=== PATIENT | female | born 1980 | race Two or more races ===

== ENCOUNTER 2016-06-05 07:25 | Day surgery (SDC) | payer BC ==
--- NOTE | 2016-05-07 21:53 | HP ---
ADMISSION HISTORY AND PHYSICAL: DATE OF ADMISSION: 05/22/16 ATTENDING SURGEON: Wilfredo Do MD CHIEF COMPLAINT: Pain, left lower quadrant, former colostomy site pain. HISTORY OF PRESENT ILLNESS: This is a 36-year-old generally healthy female who underwent sigmoid colon resection in September 2014 with colostomy for an obstructing stage III colon cancer. She completed FOLFOX-5 chemotherapy and then underwent reversal of her colostomy in [place]. This was complicated by a pelvic hematoma requiring percutaneous pigtail drainage with eventual resolution. Since her last surgery, she has noted intermittent pain, itching, and pulling sensation in the area of the former colostomy, which was allowed to heal by secondary intention. She has otherwise been doing well and continues to be followed by Dr. Wilson at [place]. She had undergone CT scan of the abdomen and pelvis on 04/27/15 and then subsequent MRI of the abdomen on 10/10/[address] on that same date (see separate reports). These were reviewed by Dr. Do, who saw the patient on 02/26/16. There was no evidence of collection other than possible resolving hematoma and no evidence of incisional hernia. He has discussed with the patient the indications for surgery, the plan , and the alternatives including no further surgery. The patient would like to proceed as scheduled with exploration of left colostomy site incision. PAST MEDICAL HISTORY: Colon cancer (see above). No other significant past medical history noted. PAST SURGICAL HISTORY: As above. She did have a PowerPort placed and eventually removed after completion of chemotherapy. CURRENT MEDICATIONS: She takes aspirin 81 mg once daily for secondary colorectal cancer prevention (instructed to stop one week prior to surgery). She also takes a probiotic daily, vitamin D dose not specified once daily and turmeric and mushroom supplement. She was asked to hold these for 3 days preoperatively. DRUG ALLERGIES: None known. FAMILY HISTORY: Negative for colorectal cancer and is also negative for bleeding problems. There is apparently a positive family history for the MTHFR gene, which I believe would potentially increase risk of venous thrombosis, though the herself has never been tested nor she had personal history of bleeding or clotting disorders. SOCIAL HISTORY: The patient is . 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 She denies use of tobacco. She drinks on average 3 glasses of wine per week. She denies any other recreational drug use. REVIEW OF SYSTEMS: General: No recent constitutional symptoms or acute illnesses. Her weight has been stable. Cardiovascular: No history of chest pain, palpitations, heart murmur, hypertension. Respiratory: No history of asthma, chronic cough or shortness of breath. GI: As above, no additions. The patient did undergo colonoscopy recently in [place] on 04/23/16, which she states was normal study. : No problems reported. DETECTIVE CHIEF: She is up-to- date within the past 2 to 3 years for Pap smear and pelvic exam as well as breast exam. She has not yet had a baseline mammogram. Endocrine: No diabetes or thyroid dysfunction. PHYSICAL EXAMINATION GENERAL: Well-nourished, well-developed female, in no acute distress. VITAL SIGNS: Height 61 inches, weight 118 pounds, temperature 97.5, blood pressure 112/70, pulse 78. HEENT: Pupils equal, round, reactive. EOMs intact. No conjunctival pallor. Scleral icterus. Oropharynx: Teeth in good repair. No intraoral lesions. NECK: No lymphadenopathy, thyromegaly, or masses. LUNGS: Clear to auscultation. No rales or wheezes. HEART: Regular rate and rhythm. No murmur noted. BREAST: Not examined. ABDOMEN: Well healed midline incision as well as left sided former colostomy site, which does show some puckering by palpation. There is some mild tenderness in this area. There are no palpable masses or obvious hernia defects. The remainder of the abdomen is soft and nontender. No other palpable masses or organomegaly. GENITALIA AND RECTAL : Not done. BACK: No spinous process or CVA tenderness. EXTREMITIES: No edema. SKIN: Warm and dry. No suspicious rashes or lesions. NEUROLOGICAL: Grossly intact. IMPRESSION: Pain at former left lower quadrant colostomy site. PLAN: Exploration, left lower quadrant former colostomy site incision. SHANNA WALLACE CC: [facility]; Dr. Wilson, [place], [place]* [id number]/[facility] #: [id number] MTDD
[2016-06-05 07:21] LABS: UR Preg Kit Lot# 6030156
[2016-06-05 07:22] LABS: Manual Entry Verification AS; UR Preg Internal Control QC Line Present
[~2016-06-05 07:25] MED LIST: Buffered Lidocaine 1% SYR 3ML* 3 ML/SYR SYRINGE INTRADERM ONE; ceFAZolin 2 GM PREMIX (*) 2 GM/50 ML BAG IVPB ONE
[2016-06-05] MEDS ORDERED: fentaNYL* 50 MCG/ML 2 ML VIAL (100 MCG VIAL) ONE (08:16)
[2016-06-05] MEDS ORDERED: Midazolam* 1 MG/ML 2 ML VIAL (2 MG) ONE (08:16)
[2016-06-05] MEDS ORDERED: Lidocaine 2% PF * 5 ML VIAL ONE (09:25)
[2016-06-05] MEDS ORDERED: Propofol* 10 MG/ML 20 ML BTL IV PUSH ONE (09:25)
[2016-06-05] MEDS ORDERED: Dexamethasone IV* 4 MG/ML 1 ML (4 MG) ONE (09:25)
[2016-06-05] MEDS ORDERED: Ketorolac INJ* 30 MG/ML 1 ML VIAL ONE (09:25)
[2016-06-05] MEDS ORDERED: Famotidine IV* 10 MG/ML 2 ML (20 mg) ONE (09:25)
[2016-06-05] MEDS ORDERED: Bupivacaine 0.25% EPI 200,000* 30 ML SDV ONE (09:29)
[2016-06-05] MEDS ORDERED: fentaNYL* 50 MCG/ML 2 ML VIAL (100 MCG VIAL) IV PRN (09:30)
[2016-06-05] MEDS ORDERED: PROCHLORPERAZINE INJ 5 MG/ML 2 ML VIAL IV PRN (09:30)
[2016-06-05] MEDS ORDERED: Ondansetron INJ* 2 MG/ML VIAL IV PRN (09:30)
[2016-06-05] MEDS ORDERED: Acetaminophen TAB* 325 MG PO PRN (09:30)
[2016-06-05] MEDS ORDERED: DiMENhydriNATE IV* 50 MG/ML VIAL IV PUSH PRN (09:30)
[2016-06-05 11:01] VITALS: BP 106/58
--- NOTE | 2016-06-05 12:12 | OP ---
DATE OF OPERATION: 06/05/16 - [facility] DATE OF : 78 SURGEON: Wilfredo Do MD. PARTS SALES ADVISOR: Neeta Antoine NP. ANESTHESIOLOGIST: Dr. Llanos. ANESTHESIA: General anesthetic, local infiltration. PRE-OP DIAGNOSIS: Left lower quadrant colostomy site pain. POST-OP DIAGNOSIS: Left lower quadrant colostomy site pain. OPERATIVE PROCEDURE: Exploration of left lower quadrant colostomy site pain with repair of external oblique. DESCRIPTION OF PROCEDURE: The patient was supine on the operative table. After adequate general anesthetic, compression stockings, Nataliya Hugger warmer and intravenous antibiotics, the abdomen was prepped with antiseptic, draped in a sterile fashion. The previous scar was excised with an elliptical incision and the adipose was mobilized around the site as well. Examination of the external oblique revealed about a 1.5 cm separation in the external oblique aponeurosis at the site of the previous colostomy. The external oblique was then mobilized off the internal oblique, which appeared to be okay. The external oblique was closed over top with running 0 Polysorb. The adipose was advanced and approximated using 3-0 Polysorb and the skin closed with 5-0 Polysorb followed by Steri-Strips and a sterile dressing. She tolerated the procedure well, was brought to Recovery in good condition. No complications. No drains. No pathologic specimen. Sponge and instruments counts correct. Estimated blood loss 10 mL. CC: [facility]* [id number]/[facility] #: [id number] MTDD
== END 2016-06-05 12:04 | disposition home or self-care (01) ==
LOC: OR 07:25
PROVIDERS: ATTEND Surgery
DX: K94.09 Other complications of colostomy (principal); Y83.3 Surgical operation with formation of external stoma as the cause of abnormal reaction of the patient, or of later complication, without mention of misadventure at the time of the procedure; Y73.3 Surgical instruments, materials and gastroenterology and urology devices (including sutures) associated with adverse incidents; Y92.9 Unspecified place or not applicable; Z85.038 Personal history of other malignant neoplasm of large intestine; Z90.49 Acquired absence of other specified parts of digestive tract; Z92.21 Personal history of antineoplastic chemotherapy; Z79.82 Long term (current) use of aspirin
CPT/HCPCS: 81025; J0690; J1100; J1885; J2250; J2704; J3010

== ENCOUNTER 2017-10-22 01:47 | Emergency (ER) | payer BC ==
[2017-10-22] MEDS ORDERED: HYDROmorphone INJ* 2 MG/ML CARPUJECT SYRINGE IM ONE (02:07)
[2017-10-22] MEDS ORDERED: PROCHLORPERAZINE INJ 5 MG/ML 2 ML VIAL IM ONE (02:08)
[2017-10-22] MEDS ORDERED: Dexamethasone TAB* 4 MG PO ONE (02:09)
--- NOTE | 2017-10-22 02:14 | ED ---
Back Pain - HPI Summary HPI Summary: This is scribe Hung Holman documenting for attending Carol Ann Rey MD. This patient is a 37 year old F presenting to [facility] with a chief complaint of L- sided back pain since 19:00. The pain also radiates down to her buttock and L leg. The patient rates the pain 8/10 in severity. Symptoms aggravated by movement. Patient reports numbness. She self-medicated with 2 10 mg pillsof Percocet (which she had left over from bowel obstruction), ibuprofen, and Cyclobenzaprine. They were being advised by their neighbor, Paty Bain MD. Patient denies having had these symptoms before. I, Dr. Rey, personally performed the services described in this documentation as scribed in my presence and it is both accurate and complete. - History of Current Complaint Chief Complaint: EDBackInjuryPain Stated Complaint: BACK PAIN Time Seen by Provider: 10/22/17 02:03 Hx Obtained From: Patient Onset/Duration: Sudden Onset, Lasting Hours - Since 17:10/21/2017, Still Present Onset/Duration: Started Hours Ago - Since 17:10/21/2017, Still Present Timing: Constant Severity Initially: Severe Severity Currently: Severe Pain Intensity: 8 Pain Scale Used: 0-10 Numeric Aggravating Symptom(s): Movement Associated Signs And Symptoms: Positive: Numbness - Allergies/Home Medications Allergies/Adverse Reactions: Allergies Allergy/AdvReac Type Severity Reaction Status Date / Time Adhesive Tape Allergy Rash Verified 06/05/16 07:41 [Tegaderm Dressing] PMH/Surg Hx/FS Hx/Imm Hx Endocrine/Hematology History: Reports: Hx Anemia Denies: Hx Diabetes Cardiovascular History: Denies: Hx Congestive Heart Failure, Hx Hypertension GI History: Reports: Other GI Disorders - COLON CANCER History: Denies: Hx Renal Disease Sensory History: Denies: Hx Contacts or Glasses, Hx Hearing Aid Opthamlomology History: Denies: Hx Contacts or Glasses - Cancer History Cancer Type, Location and Year: colon CA Hx Chemotherapy: Yes - FINISHED MAR 2015 - Surgical History Surgery Procedure, Year, and Place: [place] [facility] [place] [facility] [facility] [place] [facility] [place] Anesthesia Reactions: No Infectious Disease History: No Infectious Disease History: Denies: Traveled Outside the [place] in Last 30 Days - Family History Known Family History: Positive: Hypertension - Social History Occupation: Employed Full-time - [employer] Lives: With Family Alcohol Use: Weekly Alcohol Amount: 3 glass wine/beer week Substance Use Type: Reports: None Smoking Status (MU): Never Smoked Tobacco Have You Smoked in the Last Year: No Review of Systems Positive: Other - L sided back pain, buttock pain, and L leg pain Neurological: Other - Numbness All Other Systems Reviewed And Are Negative: Yes Physical Exam - Summary Physical Exam Summary: VITAL SIGNS: Reviewed. GENERAL: Patient is a well-developed and nourished FEMALE who is lying comfortable in the stretcher. Patient is not in any acute respiratory distress. HEAD AND FACE: No signs of trauma. No ecchymosis, hematomas or skull depressions. No sinus tenderness. EYES: PERRLA, EOMI x 2, No injected conjunctiva, no nystagmus. EARS: Hearing grossly intact. Ear canals and tympanic membranes are within normal limits. MOUTH: Oropharynx within normal limits. NECK: Supple, trachea is midline, no adenopathy, no JVD, no carotid bruit, no c- spine tenderness, neck with full ROM. CHEST: Symmetric, no tenderness at palpation LUNGS: Clear to auscultation bilaterally. No wheezing or crackles. CVS: Regular rate and rhythm, S1 and S2 present, no murmurs or gallops appreciated. ABDOMEN: Soft, non-tender. No signs of distention. No rebound no guarding, and no masses palpated. Bowel sounds are normal. EXTREMITIES: L straight leg raise is positive at 60. Tenderness over L mid buttock. NEURO: Alert and oriented x 3. No acute neurological deficits. Speech is normal and follows commands. SKIN: Dry and warm Triage Information Reviewed: Yes Vital Signs On Initial Exam: Initial Vitals Temp Pulse Resp BP Pulse Ox 98.6 F 89 22 149/120 100 10/22/17 01:48 10/22/17 01:48 10/22/17 01:48 10/22/17 01:48 10/22/17 01:48 Vital Signs Reviewed: Yes Diagnostics - Vital Signs Vital Signs Temp Pulse Resp BP Pulse Ox 10/22/17 01:48 98.6 F 89 22 149/120 100 - Laboratory Lab Statement: Any lab studies that have been ordered have been reviewed, and results considered in the medical decision making process. Re-Evaluation - Re-Evaluation 1 Re-Evaluation Time: 03:20 Change: Improved Back Pain Course/Dx - Course Assessment/Plan: Patient presented with L sided lower back pain radiating to her L buttocks and L leg. Patient is now feeling better. Dx if left sciatica. - Diagnoses Provider Diagnoses: Sciatica, left side Discharge - Sign-Out/Discharge Documenting (check all that apply): Patient Departure - D/C - Discharge Plan Condition: Stable Disposition: HOME Prescriptions: Dexamethasone TAB* [Decadron TAB*] 4 mg PO BID #10 tab Patient Education Materials: Lumbar Radiculopathy (ED) Referrals: Brianna Fragoso MD [Primary Care Provider] - (Follow up with your Primary Care Physician in 1-2 days.) Additional Instructions: RETURN TO THE EMERGENCY DEPARTMENT FOR CHANGING OR WORSENING SYMPTOMS. FOLLOW UP WITH PCP IN 1-2 DAYS.
[2017-10-22 03:36] VITALS: BP 103/54
== END 2017-10-22 03:34 | disposition home or self-care (01) ==
LOC: ED 01:47
DX: M54.32 Sciatica, left side (principal); Z85.038 Personal history of other malignant neoplasm of large intestine
CPT/HCPCS: 96372; 99282; J0780; J1170; J8540

== ENCOUNTER 2019-05-29 12:16 | Inpatient (IN) | payer BC ==
--- NOTE | 2019-05-29 11:20 | PN ---
L&D Outpatient: Visit - Reproductive Information Estimated Due Date: 06/29/19 Gestational Age: 35 Weeks and 4 Days : 2 Para: 0 - Reason for Visit Visit Reason: Patient with advanced maternal age, IVF/egg donor with complicated by growth restriction. Presents for monitoring NST and second injection of Bethametasone. - Antepartal Records Antepartal Record: Reviewed, Complicated by: - growth restriction, High risk pregnacy. - Patient History Patient History Significant: No Review of Systems Constitutional: Comfortable CV Complaint: No Respiratory: Shortness of Breath: No Gastrointestinal: No Nausea/Vomiting, Normal Bowel Movement Genitourinary: No Dysuria, No Bleeding, No Leaking Fluid Musculoskeletal: No Complaint Neurological: No Headache, No Visual Changes Movement: Normal L&D Outpatient: Exam - Abdominal Exam Abdomen Exam: Non-Tender, Fundal Height Consistent with Dates - Membranes Membrane Status: Intact - Ultrasound/Biophysical Profile Ultrasound Status: Radiology Department Full Exam Biophysical Profile: Normal Amniotic Fluid, Normal Gross Body Movements, Normal Muscle Tone, Normal Breathing, Normal Reactive NST - Exam Findings Fetus in Cephalic presentation MACY Normal BPP 8/8 Dopplers S/D ratios 3.1-3.4 and 3.5 EFW 1879 (4lbs 2oz) growth percentile 2% EFM Findings - External Monitor Findings Baseline Heart Rate: 130 External Monitor Findings: Accelerations Present, Baseline Rate Changing - There was a spontaneous 3-4 min bradycardic episode, followed by a Reactive Cat1 strip. After this I ordered a BPP, Dopplers and EFW. Contractions: Irregular - infrequent greater than 20 min apart and not palpable. L&D Outpatient: Asses/Plan Assessment: Patient with advanced maternal age, IVF/egg donor with growth restriction. She had a spontaneous deceleration after a Reactive NST and followed with a Cat1 reactive monitoring. Further evaluation with a reassuring BPP, MACY and dopplers in 95Th %ile unchanged from last screening. EFWof 4lbs, 2oz and growth percenmtuile 2%, down from 7%ile at last ultrasound . monitoring now is cat 1. She received her second dose of steroids today at noon. - Discharge Diagnosis Discharge Diagnosis: Other - growth restriction in the third trimester. Plan: Continue Observation - Plan continue observation for next 24 hrs allowing steroids to take their full effect. Consider delivery for /maternal indications prior to next 24 hrs. Patient may also be considered for delivery tommorow if all is well today given her findings on ultrasound today.
[~2019-05-29 12:16] MED LIST changes: +Betamethasone INJ* 6 MG/ML 5 ML VIAL (30 MG) IM ONE; -Buffered Lidocaine 1% SYR 3ML* 3 ML/SYR SYRINGE INTRADERM ONE; -ceFAZolin 2 GM PREMIX (*) 2 GM/50 ML BAG IVPB ONE
[2019-05-29 20:51] LABS: ABS Basophils 0.1 10^3/ul (0-0.2); ABS Lymphocytes 1.1 10^3/ul (1.0-4.8); ABS Monocytes 0.5 10^3/ul (0-0.8); Hematocrit 36 % (35-47); Hemoglobin 12.4 g/dL (12.0-16.0); Lymphocyte % 7.4 %; Mean Corpuscular HGB Conc 35 g/dL (31-36); Mean Corpuscular Hemoglobin 31 pg (27-31); Mean Corpuscular Volume 90 fL (80-97); Mean Platelet Volume 8.8 fL (7.4-10.4); Platelet Count 275 10^3/uL (150-450); Red Blood Count 3.96 10^6 /uL (3.70-4.87); Red Cell Distribution Width 13 % (10-15); White Blood Count 14.6 10^3/uL (3.5-10.8)
[2019-05-29] MEDS ORDERED: Buffered Lidocaine 1% SYRIN* 1 ML/SYRINGE INTRADERM ONE (21:28)
[2019-05-29] MEDS ORDERED: Lactated Ringers 1000 ML Bag* 1,000 ML IV ONE (21:28)
[2019-05-29] MEDS ORDERED: Penicillin G Potassium IV* 5,000,000 UNITS in NS 0.9% 100 ML* 100 ML IVPB ONE (21:35)
--- NOTE | 2019-05-29 21:46 | HP ---
General Information - Reason for Visit Patient with an IUGR (2%ile growth) at 35 6/7 weeks, with spontaneous decelerations/bradycardic episodes lasting 3-5 minutes at a time. dopplers-S/D ratios at upper limit of the 95th%ile, Advanced maternal age and IVF/donor egg , post 2 injections of betamethasone. Plan trial of induction of labor for non-reassuring monitoring. - General Information Maternal Age: 39 Grav: 2 Para: 0 SAB: 1 IEA: 0 Estimated Due Date: 06/29/19 Determined By: LMP Gestational Age in Weeks/Days: 35 6/7 Maternal Blood Type and Rh: A Positive - Results this Serology/RPR Result: Non-Reactive Rubella Result: Immune HBsAg Result: Negative HIV Result: Negative Past Medical History Delivery History: See Records Pertinent Past Medical History: See Records Pertinent Past Surgical History: See Records Pertinent Family History: See Records - Antepartal Records Antepartal Records: Reviewed, Complicated by: - Advanced maternal age , IVF/donor egg pregancy and IUGR. Review of Systems Constitutional: Comfortable CV Complaint: No Respiratory: Shortness of Breath: No Gastrointestinal: No Nausea/Vomiting, Normal Bowel Movement Genitourinary: No Dysuria, No Bleeding, No Leaking Fluid Musculoskeletal: No Complaint, No Epigastric Pain Neurological: No Headache, No Visual Changes Movement: Normal Exam Allergies/Adverse Reactions: Allergies Adhesive Tape [Tegaderm Dressing] Allergy (Verified 06/05/16 07:41) Rash Temp 98.5 BP 120/77 P 73 RR 16 Lab Values - Entire Visit: Laboratory Tests 05/29/19 05/29/19 20:42 20:42 WBC 14.6 H RBC 3.96 Hgb 12.4 Hct 36 MCV 90 MCH 31 MCHC 35 RDW 13 Plt Count 275 MPV 8.8 Neut % (Auto) 89.0 Lymph % (Auto) 7.4 [place] % (Auto) 3.2 Eos % (Auto) 0.0 Baso % (Auto) 0.4 Absolute Neuts (auto) 13.0 H Absolute Lymphs (auto) 1.1 Absolute Monos (auto) 0.5 Absolute Eos (auto) 0.0 Absolute Basos (auto) 0.1 Absolute Nucleated RBC 0.0 Nucleated RBC % 0.0 Blood Type A Positive - Measurements Height: 5 ft 1 in Weight: 155 lb Weight in lbs: 155.423120 Body Mass Index (BMI): 29.2 Pre- Weight: 133 lb Weight Gained This : 22 lbs and 0 ozs - Exam Breast: Breast Exam Deferred CVA: No CVA Tenderness Extremities: No Edema Heart: Normal Rhythm/Heart Sounds HEENT: No Significant Findings Lungs: Clear Bilaterally Rectal: Rectal Exam Deferred Reflexes: DTR 2+ Thyroid: No Thyromegaly - Abdominal Exam Abdomen Exam: Non-Tender, Fundal Height Consistent with Dates - Ultrasound/Biophysical Profile Ultrasound Status: Radiology Department Full Exam - Exam done early afternoon today, please refer to report. Targeted Exam Findings See L&D Outpatient Visit Provider Note for Findings: N/A Cervical Exam: Closed Effacement: 90% Station: -1 Presenting Part: Vertex Membrane Status: Intact Bleeding/Discharge: None EFM Findings - External Monitor Findings Baseline Heart Rate: 130 External Monitor Findings: Accelerations Present Contractions: None Assessment/Plan - Assessment with IUGR 2%ile ingrowth at 35 6/7 weeks with non-reassuring monitoring. - Obstetrical Risk Factors Obstetrical Risk Factors: GBS Unknown, , IUGR - Plan Plan: Induction, Antibiotic Prophylaxis, Admit - Anticipate Vaginal Delivery - Date/Time of Admission Date of Admission: 05/29/19 Time of Admission: 22:00
[2019-05-29] MEDS ORDERED: Lactated Ringers 1000 ML Bag* 1,000 ML IV SCH (22:00)
[2019-05-29] MEDS ORDERED: Penicillin G Potassium IV* 3,000,000 UNITS in NS 0.9% 100 ML* 100 ML IVPB SCH (22:00)
[2019-05-29] MEDS ORDERED: Oxytocin in LR* 20 UNITS/1,000 ML BAG IVPB SCH (22:00)
[2019-05-29 22:47] LABS: Urine Benzodiazepine Screen None Detected (None Detect); Urine Opiates Screen None Detected (None Detect)
[2019-05-29] MEDS ORDERED: ceFOXitin 2 GM IVPREMIX* 2 G/50 ML BAG IVPB ONE (23:20)
[2019-05-29] MEDS ORDERED: Sodium Citrate/Citric Acid* 15 ML UDC ONE (23:20)
[2019-05-29] MEDS ORDERED: ceFOXitin 2 GM IVPREMIX* 2 GM/50 ML BAG ONE (23:21)
[2019-05-29] MEDS ORDERED: Morphine PF AMP (0.5MG/ML)* 5 MG/10 ML AMP ONE (23:31)
[2019-05-29] MEDS ORDERED: OXYTOCIN* 10 UNITS/ML 1 ML VIAL ONE (23:50)
[2019-05-30] MEDS ORDERED: Witch Hazel PAD* JAR TOPICAL PRN (00:47)
[2019-05-30] MEDS ORDERED: Zolpidem TAB* 5 MG PO PRN (00:47)
[2019-05-30] MEDS ORDERED: Dibucaine 1% 28.35 GM TUBE PR PRN (00:47)
[2019-05-30] MEDS ORDERED: Glycerin ADULT SUPP PR PRN (00:47)
[2019-05-30] MEDS ORDERED: oxyCODONE TAB* 5 MG TAB PO PRN ×2 (00:47)
[2019-05-30] MEDS ORDERED: Lactated Ringers 1000 ML Bag* 1,000 ML IV SCH (01:00)
[2019-05-30] MEDS ORDERED: Naloxone* 0.4 MG/ML 1 ML VIAL IV PRN (01:29)
[2019-05-30] MEDS ORDERED: Ondansetron INJ* 2 MG/ML VIAL IV PRN (01:29)
[2019-05-30] MEDS ORDERED: Ondansetron INJ* 2 MG/ML VIAL ONE (01:38)
[2019-05-30] MEDS ORDERED: Ibuprofen TAB* 600 MG ONE (01:51)
[2019-05-30] MEDS ORDERED: Ketorolac INJ* 30 MG/ML 1 ML VIAL IV PUSH PRN (01:59)
[2019-05-30] MEDS ORDERED: Ketorolac INJ* 30 MG/ML 1 ML VIAL ONE (02:07)
[2019-05-30] MEDS: Docusate CAP* 100 MG PO SCH ×3 (09:56→19:37)
[2019-05-30] MEDS: Simethicone TAB* 80 MG TAB.CHEW PO SCH ×4 (09:56→23:11)
--- NOTE | 2019-05-30 13:06 | PTEDU ---
Patient Name: GINNY VALENCIA GINNY VALENCIA selected video: BBOB: Nurturing Your Gorgeous &Growing Baby by to vi ew on 05/30/2019 at 1:05:19 PM from [id number]
[2019-05-30] MEDS ORDERED: Acetaminophen TAB* 325 MG PO PRN (23:15)
[2019-05-31 06:22] LABS: Hematocrit 31 % (35-47); Hemoglobin 10.7 g/dL (12.0-16.0); Mean Corpuscular HGB Conc 35 g/dL (31-36); Mean Corpuscular Hemoglobin 32 pg (27-31); Mean Corpuscular Volume 91 fL (80-97); Mean Platelet Volume 8.4 fL (7.4-10.4); Platelet Count 228 10^3/uL (150-450); Red Blood Count 3.39 10^6 /uL (3.70-4.87); Red Cell Distribution Width 14 % (10-15)
[2019-05-31] MEDS: Ibuprofen TAB* 600 MG PO PRN ×3 (06:28→20:34)
[2019-05-31 07:34] LABS: ABS Lymphocytes 1.8 10^3/ul (1.0-4.8); ABS Monocytes 1.4 10^3/ul (0-0.8); ABS Neutrophils 9.7 10^3/ul (1.5-7.7); Eosinophil % 0.4 %; Lymphocyte % 13.6 %
[2019-05-31] MEDS ORDERED: Ferrous Gluconate TAB* 324 MG TAB PO SCH (09:00)
[2019-05-31] MEDS: Docusate CAP* 100 MG PO SCH ×3 (10:00→20:34)
[2019-05-31] MEDS: Simethicone TAB* 80 MG TAB.CHEW PO SCH ×4 (10:00→20:34)
--- NOTE | 2019-05-31 10:47 | OP ---
CC: Dr. Jamari Coleman of [facility] OPERATIVE REPORT: DATE OF OPERATION: 05/30/19 DATE OF : 78 SURGEON: Jude Dougherty MD PLANNING DIVISION SUPERINTENDENT: Dr. Coleman. ANESTHESIA: Spinal. PRE-OP DIAGNOSES: Intrauterine at 35 weeks with intrauterine growth restriction, persisten t category II tracing with decelerations and bradycardic episodes. POST-OP DIAGNOSES: Intrauterine at 35 weeks with intrauterine growth restriction, persiste nt category II tracing with decelerations and bradycardic episodes. OPERATIVE PROCEDURE: Primary low transverse section. ESTIMATED BLOOD LOSS: 600 cc. URINE OUTPUT: Clear. IV FLUIDS: She received 1 L of IV crystalloid fluid. FINDINGS: Delivery of a male with a weight of 4 pounds 7 ounces with Apgars of 9 and 9 over c lear fluid. Intraoperatively, the bowel was noted to be adherent to the posterior uterine wall. The anterior wall of the uterus, however, was intact. I was unable to visualize the adnexa due to adhes ions surrounding the adnexa. There was a normal bladder noted. DESCRIPTION OF PROCEDURE: The patient was taken to room where she was identified, she was placed on the operating table, where a spinal anesthetic was obtained without difficulty. She was then placed into supine position with a leftward tilt. Prepped and draped in a normal sterile fashion. A Pfannen stiel skin incision was then made with a knife and carried through to the underlying layer of fascia. The fascia was nicked in midline, extended laterally with curved Richardson scissors. The fascia was the n grasped superiorly and inferiorly with Cintia clamps and dissected off sharply from the rectus musc le. The rectus muscle was in the midline bluntly. The peritoneum was identified, grasped with pickups, and entered sharply with Metzenbaum scissors and extended superiorly and inferiorly, sh arply. Bladder blade was inserted into the patient's abdomen, bladder flap was created using Metzenb aum scissors over which the bladder blade was then re-inserted. A low transverse uterine incision wa s made with a knife and extended laterally with bandage scissors. The amniotic sac was ruptured, the fluid was noted to be clear, and the 's head was then grasped and delivered atraumatically. R est of the infant's body was then delivered. The cord was clamped and cut and the infant was handed off to waiting micro lab analyst. A cord sample was sent for a cord gas, cord bloods were also obtained. At this point, I tried to exteriorize the uterus, however, it was noted that there were dense adhesi ons from the bowel to the lower uterine segment precluding sterilizing of the uterus and adnexa were also not visualized due to adhesions surrounding the adnexal area of the uterus. The uterus was ther efore left in situ. The uterine cavity was then cleared of all clot and debris using moist laparotom y sponges. The uterine incision was then closed using 0-Polysorb suture in a running locked fashion with a second imbricating layer of 0- Polysorb suture with good hemostasis noted. The patient's abdo men was then irrigated with normal saline. The saline solution was then suctioned. Moist sponges we re then used to certain hemostasis at the uterine incision. All the sponges were then removed from t he patient's abdomen. The peritoneum was then closed using 3-0 Polysorb suture in a running fashion, the fascia was closed using 0-Polysorb suture in a running fashion, and the skin was closed with 4-0 Vicryl subcuticular stitch. The patient tolerated the procedure well. Sponge lap needle counts wer e correct x2. She was then transferred to recovery room area in stable condition. [id number]/[facility] #: [id number]
[2019-06-01] MEDS: Ibuprofen TAB* 600 MG PO PRN ×3 (08:41→21:40)
[2019-06-01] MEDS: Simethicone TAB* 80 MG TAB.CHEW PO SCH ×3 (08:41→21:40)
[2019-06-01] MEDS: Docusate CAP* 100 MG PO SCH ×3 (08:41→21:40)
[2019-06-01 20:16] VITALS: BP 109/66
[2019-06-02] MEDS: Ibuprofen TAB* 600 MG PO PRN (04:28)
[2019-06-02] MEDS: Docusate CAP* 100 MG PO SCH (09:55)
[2019-06-02] MEDS: Simethicone TAB* 80 MG TAB.CHEW PO SCH (09:55)
== END 2019-06-02 20:04 | disposition home or self-care (01) | DRG 540 ==
LOC: MCHOBOUT 12:16 → MCHOB 21:21
PROVIDERS: ADMIT Obstetrics & Gynecology; ATTEND Obstetrics & Gynecology
PROC: 10D00Z1 Extraction of Products of Conception, Low, Open Approach (ICD-10-PCS; principal; 2019-05-30)
PROC: 3E033VJ Introduction of Other Hormone into Peripheral Vein, Percutaneous Approach (ICD-10-PCS; 2019-05-30)
PROC: 10907ZC Drainage of Amniotic Fluid, Therapeutic from Products of Conception, Via Natural or Artificial Opening (ICD-10-PCS; 2019-05-30)
DX: O36.5990 Maternal care for other known or suspected poor fetal growth, unspecified trimester, not applicable or unspecified (principal); O99.89 Other specified diseases and conditions complicating pregnancy, childbirth and the puerperium; O76 Abnormality in fetal heart rate and rhythm complicating labor and delivery; N73.6 Female pelvic peritoneal adhesions (postinfective); Z3A.35 35 weeks gestation of pregnancy; Z37.0 Single live birth
CPT/HCPCS: 36415; 59025; 76819; 80307; 85025; 86850; 86900; 86901; 96372; A9270-GY; G0480; J0694; J1885; J2405; J2540; J2590